=== PATIENT | male | born 1950 | race Caucasian/White ===

== ENCOUNTER 2017-11-03 18:31 | Emergency (ER) | payer MEDICARE, OTHER ==
[~2017-11-03] VITALS: Ht 172.7 cm; Wt 96.2 kg
[2017-11-03] MEDS ORDERED: ACETAMINOPHEN 500 MG TAB PO ONE ×2 (19:08→19:15)
[2017-11-03 20:08] LABS: Basophils # (auto) 0 uL; Basophils % (auto) 0.7 % (0.0-2.0); Eosinophils # (auto) 0 uL; Eosinophils % (auto) 0.3 % (0.0-7.0); Hematocrit 46.2 % (41.0-53.0); Hemoglobin 16.3 g/dL (13.5-17.5); Lymphocytes # (auto) 0.4 uL; Lymphocytes % (auto) 7.1 % (10.0-50.0); Mean Corpuscular Hemoglobin 33.5 pg (28.0-32.0); Mean Corpuscular Hgb Conc. 35.2 g/dL (32.0-36.0); Mean Platelet Volume 8.6 fL (6.9-10.8); Monocytes # (auto) 0.9 uL; Monocytes % (auto) 17.2 % (0.0-12.0); Neutrophils # (auto) 4.1 uL; Neutrophils % (auto) 74.7 % (37.0-80.0); Nucleated Red Blood Cells % 0.1 %; Platelet Count (auto) 161 10^3/uL (140-450); Red Cell Distribution Width 13.4 % (11.8-14.3); White Blood Cell 5.5 10^3/uL (4.4-10.8)
[2017-11-03 20:23] LABS: Calcium 8.7 mg/dL (8.5-10.1); Potassium 3.9 mmol/L (3.5-5.1)
[2017-11-03 20:25] LABS: BUN/Creatinine Ratio 8.5
[2017-11-03 20:29] LABS: Bilirubin, Total 0.8 mg/dL (0.2-1.0); Total Protein 8.1 g/dL (6.4-8.2)
[2017-11-03 21:51] VITALS: BP 148/93
[2017-11-03 22:39] LABS: Amylase 68 U/L (25-115)
[2017-11-03 23:02] LABS: B-Type Natriuretic Peptide 200.05 pg/mL (0-100)
[2017-11-03 23:10] LABS: Temperature: 22.8 C (20.0-25.0)
[2017-11-03] MEDS ORDERED: FUROSEMIDE 20 MG/2 ML VIAL IV ONE (23:30)
[2017-11-03] MEDS ORDERED: LEVOFLOXACIN 250 MG TAB PO ONE (23:30)
== END 2017-11-03 23:49 | disposition home or self-care (01) ==
LOC: EDBD 18:31 → ER 18:35
DX: J20.9 Acute bronchitis, unspecified (principal); I25.10 Atherosclerotic heart disease of native coronary artery without angina pectoris; I11.0 Hypertensive heart disease with heart failure; I50.9 Heart failure, unspecified; I25.2 Old myocardial infarction
CPT/HCPCS: 36415; 71020; 80053; 82150; 83605; 83690; 83880; 84484; 85025; 85379; 87040; 93005; 96374; 99285; J1940